=== PATIENT | female | born 2000 | race Caucasian/White ===

== ENCOUNTER → 2020-04-08 17:43 | Outpatient (CLI) | payer BC, SELFPAY ==
--- NOTE | ~2020-04-08 | XR_ITS ---
EXAMINATION: XR tibia fibula RT 2V INDICATION: Right knee and leg pain TECHNIQUE: Two views of the right tibia and fibula are obtained. COMPARISON: 08/20/2012 FINDINGS: Internal stabilization hardware is again seen in the right femur. There has been interval h ealing at the site of the previously described curettage and osteotomy of the mid tibia. No acute fra cture, dislocation, or subluxation is identified. Alignment at the knee is normal. IMPRESSION: 1. No acute osseous abnormality. Reviewed, dictated and finalized at location A. CONDUCTOR
--- NOTE | ~2020-04-08 | XR_ITS ---
EXAMINATION: XR knee RT min 4V DATE: 04/08/2020 19:02 INDICATION: Right knee pain TECHNIQUE: Four views of the right knee were obtained. COMPARISON: 08/20/2012 FINDINGS: Alignment is normal. No fracture or osteochondral lesion. Joint spaces are normal with no e rosions. No joint effusion/synovitis. Soft tissues are unremarkable. There is partially imaged orth opedic hardware in the visualized proximal tibia. IMPRESSION: 1. No acute osseous abnormality. Reviewed, dictated and finalized at location A. ON PRESSER
== END ==
PROVIDERS: Visit Provider Family Medicine
DX: M25.561 Pain in right knee (principal)
CPT/HCPCS: 73564; 73590

== ENCOUNTER → 2020-12-09 03:34 | Outpatient (CLI) | payer BC, SELFPAY ==
[2020-12-10 01:36] LABS: SARS-CoV-2 RNA PCR Positive
== END ==
PROVIDERS: PCP Family Medicine; Visit Provider Family Medicine
DX: U07.1 COVID-19 (principal)
CPT/HCPCS: C9803; U0003; U0005